=== PATIENT | male | born 1970 | race Caucasian/White ===

== ENCOUNTER → 2022-04-29 | Day surgery (SDC) | payer OTHER | LOC: SPEC 08:44 | PROVIDERS: ATTEND Nurse Practitioner Family | PROC: 02HV33Z Insertion of Infusion Device into Superior Vena Cava, Percutaneous Approach (ICD-10-PCS; principal; 2022-04-29) | DX: N39.0 Urinary tract infection, site not specified (principal) | CPT/HCPCS: 36569; C1751 ==

== ENCOUNTER 2024-05-06 00:23 | Emergency (ER) | payer OTHER ==
[2024-05-06 02:32] LABS: #Basophils 0.03 10x3/uL (0.0-0.2); %Basophils 0.4 % (0.0-1.0); %Eosinophils 3.5 % (0.0-10.0); %Lymphocytes 28.3 % (21.0-51.0); %Monocytes 13.3 % (0.0-10.0); %Neutrophils 54.2 % (42.0-75.0); Hematocrit 34.2 % (42.0-52.0); Hemoglobin 11.8 g/dL (14.0-18.0); Mean Corpuscular HGB CONC 34.5 g/dL (32.0-36.0); Mean Corpuscular Hemoglobin 30.3 pg (27.0-31.0); Mean Corpuscular Volume 87.7 fL (78.0-98.0); Platelet Count 125 10x3/uL (130-400); RBC Distribution Width 13.4 % (11.5-14.5)
[2024-05-06 02:51] LABS: ALT (SGPT) 6 U/L (8-55); AST (SGOT) 11 U/L (5-34); Albumin 2.8 g/dL (3.5-5.0); Alkaline Phosphatase 59 U/L (40-110); Anion Gap 14 mmol/L (10-20); BUN (Urea Nitrogen) 17 mg/dL (8.4-25.7); Bilirubin, Total 0.2 mg/dL (0.2-1.2); Calc. Creatinine Clearance 0 mL/min (70-130); Calcium 8.6 mg/dL (7.8-10.44); Carbon Dioxide 29 mmol/L (22-29); Chloride 96 mmol/L (98-107); Estimated GFR 104; Globulin 3.1 g/dL (2.4-3.5); Glucose 81 mg/dL (70-105); Potassium 3.7 mmol/L (3.5-5.1); Protein, Total 5.9 g/dL (6.0-8.3); Sodium 135 mmol/L (136-145)
[2024-05-06 02:54] LABS: Troponin I Less than 0.010 ng/mL (< 0.028)
[2024-05-06] MEDS ORDERED: Acetaminophen 500 MG TAB ONE (05:31)
[2024-05-06] MEDS ORDERED: Nitroglycerin 0.4 MG TAB 1 EACH ONE ×2 (05:32→05:34)
[2024-05-06 05:45] LABS: Troponin I Less than 0.010 ng/mL (< 0.028)
== END 2024-05-06 11:15 ==
LOC: EEVIPCON 00:23 → ERS 00:23
DX: R07.89 Other chest pain (principal); I10 Essential (primary) hypertension; E78.5 Hyperlipidemia, unspecified; E03.9 Hypothyroidism, unspecified; I25.10 Atherosclerotic heart disease of native coronary artery without angina pectoris; Z79.899 Other long term (current) drug therapy
CPT/HCPCS: 36415; 70450; 71045; 80053; 83880; 84484; 85025; 93005